=== PATIENT | male | born 1940 | race American Indian/Alaskan Native ===

== ENCOUNTER 2018-07-25 16:50 | Emergency (ER) | payer MEDICARE ==
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
[2018-07-25 18:01] VITALS: BP 162/90
--- NOTE | 2018-07-25 19:14 | XRay Report ---
PROCEDURE: XR CHEST ROUTINE 2V TECHNIQUE: PA and lateral chest radiographs were obtained. HISTORY: cough COMPARISONS: None. FINDINGS: Heart: Normal. Mediastinum/Vessels: Normal. Lungs/Pleural space: No infiltrate, effusion, or pneumothorax. Bony thorax: No acute osseous abnormality. IMPRESSION: No pulmonary infiltrates are identified. This document is electronically signed by Nayely Wilkerson MD., July 25 2018 07:12:24 PM ET
[2018-07-25] MEDS ORDERED: TORADOL IM ONE (23:07)
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
== END 2018-07-26 00:50 | disposition home or self-care (01) ==
LOC: ED 16:50
DX: M25.551 Pain in right hip (principal); Z79.899 Other long term (current) drug therapy
CPT/HCPCS: 71046; 96372; 99283; J1885